=== PATIENT | female | born 1985 | race Caucasian/White ===

== ENCOUNTER 2023-05-24 17:50 | Outpatient (RCR) | payer OTHER, SELFPAY | END 2023-05-24 23:59 | disposition home or self-care (01) | LOC: RPT 17:50 | PROVIDERS: ATTENDING PHYSICIAN Student in an Organized Health Care Education/Training Program; FAMILY PHYSICIAN Family Medicine | DX: Z47.89 Encounter for other orthopedic aftercare (principal); M76.822 Posterior tibial tendinitis, left leg; Z73.6 Limitation of activities due to disability; R26.2 Difficulty in walking, not elsewhere classified; M62.81 Muscle weakness (generalized) | CPT/HCPCS: 97010; 97110; 97112; 97116; 97140; 97161 ==

== ENCOUNTER 2023-06-24 06:15 | Outpatient (RCR) | payer OTHER, SELFPAY | END 2023-06-24 23:59 | disposition home or self-care (01) | LOC: RPT 06:15 | PROVIDERS: ATTENDING PHYSICIAN Student in an Organized Health Care Education/Training Program; FAMILY PHYSICIAN Family Medicine | DX: Z47.89 Encounter for other orthopedic aftercare (principal); M76.822 Posterior tibial tendinitis, left leg; Z73.6 Limitation of activities due to disability; R26.2 Difficulty in walking, not elsewhere classified; M62.81 Muscle weakness (generalized); M25.572 Pain in left ankle and joints of left foot | CPT/HCPCS: 97010; 97110; 97112; 97140 ==

== ENCOUNTER 2023-07-26 06:35 | Outpatient (RCR) | payer OTHER, SELFPAY | END 2023-07-26 23:59 | disposition home or self-care (01) | LOC: RPT 06:35 | PROVIDERS: ATTENDING PHYSICIAN Student in an Organized Health Care Education/Training Program; FAMILY PHYSICIAN Family Medicine | DX: Z47.89 Encounter for other orthopedic aftercare (principal); M76.822 Posterior tibial tendinitis, left leg; Z73.6 Limitation of activities due to disability; R26.2 Difficulty in walking, not elsewhere classified; M62.81 Muscle weakness (generalized); M25.572 Pain in left ankle and joints of left foot | CPT/HCPCS: 97010; 97110; 97112; 97140 ==

== ENCOUNTER 2023-08-23 18:55 | Outpatient (RCR) | payer OTHER, SELFPAY | END 2023-08-23 23:59 | disposition home or self-care (01) | LOC: RPT 18:55 | PROVIDERS: ATTENDING PHYSICIAN Student in an Organized Health Care Education/Training Program; FAMILY PHYSICIAN Family Medicine | DX: Z47.89 Encounter for other orthopedic aftercare (principal); M76.822 Posterior tibial tendinitis, left leg; Z73.6 Limitation of activities due to disability; R26.2 Difficulty in walking, not elsewhere classified; M62.81 Muscle weakness (generalized); M25.572 Pain in left ankle and joints of left foot | CPT/HCPCS: 97010; 97110; 97112; 97140 ==

== ENCOUNTER 2023-09-06 18:54 | Outpatient (RCR) | payer OTHER, SELFPAY | END 2023-09-06 23:59 | disposition home or self-care (01) | LOC: RPT 18:54 | PROVIDERS: ATTENDING PHYSICIAN Student in an Organized Health Care Education/Training Program; FAMILY PHYSICIAN Family Medicine | DX: M76.822 Posterior tibial tendinitis, left leg; Z73.6 Limitation of activities due to disability; M62.81 Muscle weakness (generalized); R26.2 Difficulty in walking, not elsewhere classified; M25.572 Pain in left ankle and joints of left foot; Z47.89 Encounter for other orthopedic aftercare | CPT/HCPCS: 97110; 97112; 97140; 97530 ==

== ENCOUNTER 2023-11-25 03:00 | Emergency (ER) | payer OTHER, SELFPAY ==
[2023-11-25] VITALS (7 sets, daily range): BP systolic 119–142; BP diastolic 73–95; BMI 35.5
[2023-11-25 04:09] LABS: % Basophils 0.4 % (0-2); % Eosinophils 0.4 % (0-6); % Immature Granulocytes 0.4 % (0-0.5); % Lymphocytes 12.6 % (20.5-51.1); % Neutrophils 81.2 % (42.2-75.2); Absolute Basophils 0.1 10^3/uL (0-0.2); Absolute Eosinophils 0.1 10^3/uL (0-0.7); Absolute Immature Granulocytes 0.1 10^3/uL (0-0.05); Absolute Monocytes 0.8 10^3/uL (0.1-0.6); Absolute Neutrophils 12.7 10^3/uL (1.4-6.5); Hematocrit 36.1 % (37.0-47.0); Hemoglobin 12.4 g/dL (12.0-16.0); Mean Corp Hgb Conc. 34.3 g/dL (33.0-37.0); Mean Corpuscular Hgb 28.4 pg (27.0-31.0); Mean Corpuscular Volume 82.6 fL (81.0-99.0); Nucleated Red Blood Cells % 0 %; Platelet Count 329 10^3/uL (130-400); Red Blood Cell Count 4.37 10^6/uL (4.20-5.40); Red Cell Dist. Width 14.2 % (11.5-14.5); White Blood Cell Count 15.7 10^3/uL (4.8-10.8)
[2023-11-25 04:21] LABS: HCG, Serum Qualitative Screen Negative
[2023-11-25 04:27] LABS: ALT (SGPT) 53 U/L (0-35); AST (SGOT) 72 U/L (14-36); Albumin 4.4 g/dl (3.5-5.0); Alkaline Phosphatase 74 U/L (38-126); Blood Urea Nitrogen 13 mg/dl (7-17); Calcium 9.7 mg/dl (8.4-10.2); Carbon Dioxide 23 mmol/L (22-30); Chloride 104 mmol/L (98-107); Estimated Creatinine Clearance 112 ml/min; Glucose 98 mg/dl (70-99); Lipase 209 U/L (23-300); Sodium 139 mmol/L (135-145); Total Bilirubin 0.8 mg/dl (0.2-1.3); Total Protein 7.2 g/dl (6.3-8.2); eGFR > 60.00
[2023-11-25] MEDS: ZOFRAN 4 MG IV (04:53)
--- NOTE | 2023-11-25 05:57 | ED.GENMED ---
History of Present Illness
General
Chief Complaint: Abdominal Pain
Source: patient
Exam Limitations: none
Time Seen by Provider: 11/25/23 05:22
Nursing documentation reviewed up to this point in time: agreed with
History of Present Illness
History of Present Illness:
Pleasant 38-year-old female who presents with right upper quadrant abdominal pain. Patient states that the pain radiates around to her back. The pain started earlier this evening. Denies fever or chills. Patient states that she did have some
nausea with 1 episode of non-bloody vomiting. Patient reports no chest pain or shortness of breath. Patient has a past medical history significant for biliary dyskinesia.
Past History
Past History
ED Past Medical History: None
ED Past Surgical History:
Social History
Tobacco: Non-smoker
Alcohol: Occasional
Drug: None
Personal:
Living: with family
Employment: Employed
Phy Exam
General Physical Exam
General Presentation: well appearing and no apparent distress
General Skin: warm and dry
General Habitus: normal
General Mental: alert
General Hydration: appears well hydrated
ENT Exam
ENT Exam: EOMI, pharynx normal, neck supple and normocephalic
Eye Exam
Eye Exam: PERRL, cornea clear and conjunctiva normal
Cardiovascular Exam
Cardiovascular Exam: regular rate/rhythm, no edema, no murmur and normal peripheral pulses
Pulmonary Exam
Pulmonary Exam: lungs clear, no respiratory distress, no rales, no crackles, no rhonchi, no stridor, no wheezing and no cough
Gastrointestinal Exam
Gastrointestinal Exam: normal bowel sounds, soft, no organomegaly, no pulsatile mass and non distended
Palpation: right upper quadrant: Minimal tenderness
Neurological Exam
Neurological Exam: alert, oriented x3, no motor deficits and speech normal
Musculoskeletal Exam
Musculoskeletal Exam: full ROM and no edema
Skin Exam
Skin Exam: normal color, warm/dry, no rash and no petechia
Psychiatric Exam
Psychiatric Exam: normal mood/affect
Course
Orders/Labs/Results
Orders:
Orders
11/25/23 03:39
IV Insert/Care/Rem.- Treatment PRN
11/25/23 03:41
Test Result ONCE
11/25/23 03:52
Complete Blood Count/With Diff Urgent
Comprehensive Metabolic Panel Urgent
HCG, Serum Qualitative Screen Urgent
Lipase Urgent
11/25/23 04:00
US Abdomen Complete/Upper Urgent
Comment:
Reason For Exam: upper abd pain
11/25/23 04:51
Morphine Sulfate 4 mg .ROUTE .STK-MED ONE
Ondansetron Injectable [Zofran] 4 mg .ROUTE .STK-MED ONE
11/25/23 04:52
Ondansetron Injectable [Zofran] 4 mg IV NOW STA
11/25/23 04:53
Morphine Sulfate 4 mg IV NOW STA
Ondansetron Injectable [Zofran] 4 mg IV NOW STA
Abnormal Lab Results
11/25/23
03:52
WBC 15.7 H 10^3/uL
(4.8-10.8)
Hct 36.1 L %
(37.0-47.0)
Abs Immat Gran (auto) 0.1 H 10^3/uL
(0-0.05)
Absolute Neuts (auto) 12.7 H 10^3/uL
(1.4-6.5)
Absolute Monos (auto) 0.8 H 10^3/uL
(0.1-0.6)
Neutrophils % 81.2 H %
(42.2-75.2)
Lymphocytes % 12.6 L %
(20.5-51.1)
AST 72 H U/L
(14-36)
ALT 53 H U/L
(0-35)
11/25/23 03:52
11/25/23 03:52
Vital Signs
Initial and Last Documented VS:
Initial Vital Signs
Temp Pulse Resp BP Pulse Ox
98.0 F 73 20 142/95 100
11/25/23 03:09 11/25/23 03:09 11/25/23 03:09 11/25/23 03:09 11/25/23 03:09
Last Documented Vital Signs
Temp Pulse Resp BP Pulse Ox
98.0 F 69 20 132/79 98
11/25/23 03:09 11/25/23 05:41 11/25/23 03:09 11/25/23 03:54 11/25/23 03:54
*Radiology
Radiology exam reviewed: radiology read reviewed
*Critical Care Note
Total Time (30-74mins, 75-104mins- exclusive of procedures): Not Applicable
Update Note
Update Note:
Ultrasound abdomen
IMPRESSION:
Cholelithiasis without cholecystitis. Negative Rodriguez sign. Common bile duct normal at 4 mm. Liver is enlarged and steatotic.
Discussed ultrasound with patient. She states that she is feeling better though she still has pain. Offered her admission for further evaluation. At this point she declines. She is aware that LFTs are slightly elevated. She has been drinking
alcohol recently. She also reports overindulgence while on vacation. Discussed return to ER instructions with the patient. I feel that she has good understanding of discharge instructions and will return as needed
ED Attending Note
-
Portions of this chart may have been created with voice recognition software.� Occasional wrong word or��sound alike� substitutions may have occurred due to the inherent limitations of voice recognition software.
Discharge Plan
Departure
Patient Disposition: Home (Routine Discharge)
Date of Disposition: 11/25/23
Time of Disposition: 06:06
Patient with high blood pressure during this ER visit?: Yes
Condition: Good
Discharge Problem:
Biliary colic
Instructions: Gallstones (DC), Abdominal Pain, BLOOD PRESSURE
Prescriptions:
No Action
metformin 1,000 mg Tablet
500 mg PO BID
multivitamin
1 tab PO DAILY
drospirenone-ethinyl estradiol [BERNARDO (28)] 3-0.02 mg Tablet
1 tab PO DAILY
doxycycline hyclate 50 mg Tablet
50 mg PO BID
Wegovy 1.7 mg/0.75 mL Pen Injector
1.7 mg SC QWEEK
Referrals:
Yoshi Rogers MD [Family Provider] -
Eduard Jiang MD [Active] - As needed
Activity Restrictions/Additional Instructions:
It was a pleasure meeting you and taking part in your care. We hope for your continued healing and wellness.
Please read discharge instructions in their entirety. However, they are for general education and may not describe your exact diagnosis at discharge. Information on your ER visit and medical conditions were discussed with you along with appropriate
follow up information...
If indicated, please take your medications as instructed and indicated on discharge paperwork.
Please schedule a follow up appointment as directed. Call to schedule an appointment
Please return to the emergency department with ANY change in, persisting, or worsening of symptoms. If any of your symptoms do not improve, or persist, or become more severe within 6-12 hours, please return to the emergency department for further
care.
Please return to the emergency department if you develop a headache, neck pain/stiffness, fever greater than 100.4F, chest pain, shortness of breath, persistent nausea, vomiting, slurred speech, difficulty walking, numbness/tingling, weakness, signs
of infection or any other symptoms that are worrisome to you.
If you have any questions or concerns please do not hesitate to call the Hospital at or E-mail me directly at [email or web address]
Interventions
Interventions:
*General Assessment Last Done: 11/25/23 03:09
*Neglect/Abuse Screening Last Done: 11/25/23 03:09
ED- Fall Risk Assessment Last Done: 11/25/23 03:09
*ED COVID-19 Vaccine History Last Done: 11/25/23 03:09
EE-Jawfnu-Fndjmuqzfc Assessment Last Done: 11/25/23 05:18
Discharge Date and Time
Print Language: [id number]
[2023-11-25] MEDS: TORADOL 30 MG IV (06:52)
[2023-11-25] MEDS: CARAFATE SUSPENSION 1 GM PO (06:55)
== END 2023-11-25 08:41 | disposition home or self-care (01) ==
LOC: EMR 03:00
PROVIDERS: EMERGENCY PHYSICIAN Student in an Organized Health Care Education/Training Program; FAMILY PHYSICIAN Family Medicine
DX: K80.70 Calculus of gallbladder and bile duct without cholecystitis without obstruction (principal); R03.0 Elevated blood-pressure reading, without diagnosis of hypertension
CPT/HCPCS: 99284; 96374; 96375; 76700; 80053; 83690; 84703; 85025

== ENCOUNTER → 2024-04-10 19:32 | Outpatient (REF) | payer OTHER, SELFPAY | LOC: MRI 19:32 | PROVIDERS: ATTENDING PHYSICIAN Student in an Organized Health Care Education/Training Program; FAMILY PHYSICIAN Family Medicine | DX: M25.572 Pain in left ankle and joints of left foot (principal); M79.672 Pain in left foot | CPT/HCPCS: 73718; 73721 ==

== ENCOUNTER → 2024-04-17 06:43 | Outpatient (REF) | payer OTHER, SELFPAY | LOC: RAD 06:43 | PROVIDERS: ATTENDING PHYSICIAN Internal Medicine Endocrinology, Diabetes & Metabolism; FAMILY PHYSICIAN Family Medicine | DX: E28.2 Polycystic ovarian syndrome (principal); E55.9 Vitamin D deficiency, unspecified; E66.3 Overweight; E04.9 Nontoxic goiter, unspecified | CPT/HCPCS: 76536 ==

== ENCOUNTER → 2024-08-17 13:31 | Outpatient (REF) | payer OTHER, SELFPAY | LOC: RAD 13:31 | PROVIDERS: ATTENDING PHYSICIAN Obstetrics & Gynecology; FAMILY PHYSICIAN Family Medicine | DX: N93.8 Other specified abnormal uterine and vaginal bleeding (principal) | CPT/HCPCS: 76830; 76856 ==

== ENCOUNTER → 2024-12-31 06:45 | Outpatient (REF) | payer OTHER, SELFPAY | LOC: HWRAD 06:45 | PROVIDERS: ATTENDING PHYSICIAN Family Medicine | DX: M79.671 Pain in right foot (principal) | CPT/HCPCS: 73630 ==